=== PATIENT | male | born 1955 | race Caucasian/White ===

== ENCOUNTER 2017-01-01 15:41 | Emergency (ER) | payer OTHER ==
[~2017-01-01] VITALS: Ht 175.3 cm; Wt 92.0 kg
[2017-01-01 15:43] VITALS: BP 186/89; PULSE 88; RESP 18; TEMP 97.7; O2SAT 95
--- NOTE | 2017-01-01 16:17 | PD ---
HPI Chief Complaint: Back/ Neck Pain or Injury Time Seen by Provider: 16:17 Travel History International Travel<30 days: No Contact w/Intl Traveler<30days: No Traveled to known affect area: No History of Present Illness HPI 61 year-old male with long-standing history of low back pain and sciatica presents to emergency department for evaluation of exacerbation of this. Patient has been treated for an inguinal hernia and was given medication for abdominal cramping from [facility] earlier this week. He states that this did help his hernia but he continues to have low back pain. The pain he has had "for years." He states that it comes and goes. It radiates down to his anterior knee intermittently. Denies any new injury. No saddle paresthesia , loss of bowel or bladder, or lower extremity weakness. He has no other symptoms to report at this time. [facility] Past Medical History Medical History: Denies Significant Hx Social History Alcohol Use: No Tobacco Use: No Substance Use: No Allergies-Medications (Allergen,Severity, Reaction): Coded Allergies: No Known Allergies (Unverified , 01/01/17) Reported Meds & Prescriptions Reported Meds & Active Scripts Active Medrol Dosepak (Methylprednisolone) 4 Mg Dspk 4 Mg PO DIRECTED Per Pharmacist direction Review of Systems Except as stated in HPI: all other systems reviewed are Neg Physical Exam Narrative GENERAL: Well-nourished male patient, in no acute distress SKIN: Focused skin assessment warm/dry. HEAD: Atraumatic. Normocephalic. EYES: Pupils equal and round. No scleral icterus. No injection or drainage. ENT: No nasal bleeding or discharge. Mucous membranes pink and moist. NECK: Trachea midline. No JVD. CARDIOVASCULAR: Regular rate and rhythm. No murmur appreciated. RESPIRATORY: No accessory muscle use. Clear to auscultation. Breath sounds equal bilaterally. GASTROINTESTINAL: Abdomen soft, non-tender, nondistended. Right inguinal hernia Hepatic and splenic margins not palpable. MUSCULOSKELETAL: No obvious deformities. No clubbing. No cyanosis. No edema. Associated palpation the right sacroiliac joint. Positive straight leg right lower extremity. Distal pulses are palpable. Cap refill within normal limits. No hyperreflexia bilateral lower extremity. NEUROLOGICAL: Awake and alert. No obvious cranial nerve deficits. Motor grossly within normal limits. Normal speech. PSYCHIATRIC: Appropriate mood and affect; insight and judgment normal. Data Data Last Documented VS Vital Signs Date Time Temp Pulse Resp B/P Pulse Ox O2 Delivery O2 Flow Rate FiO2 01/01/17 15:43 97.7 88 18 186/89 95 Orders Ketorolac Inj (Toradol Inj) (01/01/17 16:30) Orphenadrine Inj (Norflex Inj) (01/01/17 16:30) Splint Or Brace Apply/Monitor (01/01/17 16:26) Brace Quick Draw Corset (01/01/17 ) MDM Medical Decision Making Medical Screen Exam Complete: Yes Emergency Medical Condition: Yes Medical Record Reviewed: Yes Differential Diagnosis Low back strain versus discogenic pain versus radiculopathy versus sciatica Narrative Course 61-year-old male presents to the emergency department for evaluation of low back pain on the right side that radiates to his right knee. This is not acute for the patient. He has no focal deficits or weaknesses on exam. He is treated for pain and provided a quick draw back brace. He is counseled on care. Financial counselor is quested to discuss patient assistance with him he feels like he cannot get in to see anybody because he does not have insurance. After their discussion, patient will be discharged home. He agrees to return immediately with any acute worsening of symptoms. Diagnosis Primary Impression: Low back pain Qualified Code: M54.41 - Chronic right-sided low back pain with right-sided sciatica Referrals: Primary Care Physician Patient Instructions: General Instructions, Sciatica (ED) Additional Instructions: Follow-up with a primary care provider Brace for support ambulatory. Do not wear at all times as a full week in your core muscles and possibly worsening your back pain Return immediately with any acute worsening of symptoms Med/Other Pt SpecificInfo: Prescription(s) given Scripts Methylprednisolone Dosepak (Medrol Dosepak)4 Mg Dspk4 Mg PO DIRECTED #1 DSPK Ref 0 Per Pharmacist direction Prov:Tori Victor 01/01/17 Disposition: 01 DISCHARGE HOME Condition: Stable Tori Victor Jan 01, 2017 16:17
[2017-01-01] MEDS ORDERED: KETOROLAC TROMETHAMINE 60 MG/2 ML (IM) VIAL IM ONE (16:30)
[2017-01-01] MEDS ORDERED: ORPHENADRINE INJ 60 MG/2 ML AMP IM ONE (16:30)
[2017-01-01] MEDS ORDERED: MEDR4PAK PO (16:49)
== END 2017-01-01 17:02 | disposition home or self-care (01) ==
LOC: NEPD 15:41
DX: M54.31 Sciatica, right side (principal); K40.90 Unilateral inguinal hernia, without obstruction or gangrene, not specified as recurrent
CPT/HCPCS: 96372; 99283; J1885; J2360; L0627

== ENCOUNTER 2017-01-05 11:55 | Emergency (ER) | payer OTHER ==
[~2017-01-05] VITALS: Ht 175.3 cm; Wt 91.0 kg
[~2017-01-05 11:55] MED LIST: MEDR4PAK PO
[2017-01-05 11:57] VITALS: BP 183/97; PULSE 97; RESP 18; TEMP 98.3; O2SAT 97
--- NOTE | 2017-01-05 12:11 | PD ---
Physical Exam Date Seen by Provider: Jan 05, 2017 Time Seen by Provider: 12:07 Narrative 61 y/o male presents with ongoing 10/10 back pain that has been ongoing for the past couple of weeks. Patient was seen 4 days ago and placed on Prednisone. Patient is signing up for pain management, but is here with ongoing intractable pain. Pain localized to Right side. Denies weakness or numbness. V/S Stable. Patient awaiting med bed placement. Data Data Last Documented VS Vital Signs Date Time Temp Pulse Resp B/P Pulse Ox O2 Delivery O2 Flow Rate FiO2 01/05/17 11:57 98.3 97 18 183/97 97 MDM Medical Record Reviewed: Yes Supervised Visit with GEOFFREY: Yes Condition: Stable Yoseph Tyler Jan 05, 2017 12:11
--- NOTE | 2017-01-05 12:38 | PD ---
HPI . acute on chronic back pain Chief Complaint: Back/ Neck Pain or Injury Time Seen by Provider: 12:38 Travel History International Travel<30 days: No Contact w/Intl Traveler<30days: No Traveled to known affect area: No History of Present Illness HPI 61-year-old male with history of chronic back pain here with complaints of persistent back pain for several weeks. Patient was recently seen in the emergency department on January 01, 2017 and was given steroids. He tells me that it is somewhat helping, but he is still having significant back pain and decided to come to the emergency department for further evaluation. He is complaining of right sided back pain that shoots into his legs. He says that the pain is 10/10 when it's at its peak. Currently he is having some relief, but tells me he can get worse. He denies any bowel or bladder dysfunction. He denies any saddle anesthesia. He denies any recent injury or trauma to the area. He is accompanied by a friend, who will be driving him home. PFSH Past Medical History Diminished Hearing: No Social History Alcohol Use: No Tobacco Use: No Substance Use: No Allergies-Medications (Allergen,Severity, Reaction): Coded Allergies: No Known Allergies (Unverified , 01/01/17) Reported Meds & Prescriptions Reported Meds & Active Scripts Active Ibuprofen 800 Mg Tab 800 Mg PO TID Flexeril (Cyclobenzaprine HCl) 5 Mg Tab 5 Mg PO TID Medrol Dosepak (Methylprednisolone) 4 Mg Dspk 4 Mg PO DIRECTED Per Pharmacist direction Review of Systems General / Constitutional: No: Fever Eyes: No: Visual changes HENT: No: Headaches Cardiovascular: No: Chest Pain or Discomfort Respiratory: No: Shortness of Breath Gastrointestinal: No: Abdominal Pain Genitourinary: No: Dysuria Musculoskeletal: Positive: Pain (back pain/right leg) Skin: No Rash Neurologic: No: Weakness Psychiatric: No: Depression Endocrine: No: Polydipsia Hematologic/Lymphatic: No: Easy Bruising Physical Exam Narrative GENERAL: AAO x 3, no acute distress, Well-nourished, well-developed patient. SKIN: Warm and dry. No visible rashes or bruising. HEAD: Normocephalic and atraumatic. EYES: No scleral icterus. No injection or drainage. ENT: No nasal drainage noted. airway patent. NECK: Supple, trachea midline. No JVD. CARDIOVASCULAR: Regular rate and rhythm without murmurs, gallops, or rubs. RESPIRATORY: Breath sounds equal bilaterally. No accessory muscle use. No rhonchi or rales. GASTROINTESTINAL: Visual inspection normal EXTREMITIES: No cyanosis or edema. Ambulatory. Bilateral legs normal range of motion. Straight leg raise negative bilaterally. Tenderness over the right gluteus. BACK: Nontender without obvious deformity. No CVA tenderness. PSYCH: AAO x 3, normal affect. Data Data Last Documented VS Vital Signs Date Time Temp Pulse Resp B/P Pulse Ox O2 Delivery O2 Flow Rate FiO2 01/05/17 12:58 16 01/05/17 11:57 98.3 97 183/97 97 Orders Ketorolac Inj (Toradol Inj) (01/05/17 12:45) Orphenadrine Inj (Norflex Inj) (01/05/17 12:45) [facility] Medical Decision Making Medical Screen Exam Complete: Yes Emergency Medical Condition: Yes Medical Record Reviewed: Yes Differential Diagnosis Acute on chronic back pain, sciatica, less likely fracture disc Narrative Course 61-year-old male with history of chronic back pain here with complaints of persistent back pain for several weeks. Patient was recently seen in the emergency department on January 01, 2017 and was given steroids. He tells me that it is somewhat helping, but he is still having significant back pain and decided to come to the emergency department for further evaluation. He is complaining of right sided back pain that shoots into his legs. He says that the pain is 10/10 when it's at its peak. Currently he is having some relief, but tells me he can get worse. He denies any bowel or bladder dysfunction. He denies any saddle anesthesia. He denies any recent injury or trauma to the area. He is accompanied by a friend, who will be driving him home. Patient seen and examined. He appears to have chronic back pain with some sciatica. I will provide him with a shot of Norflex and Toradol here in the emergency department I will discharge him home with a course of muscle relaxers and ibuprofen. I've explained to him that ultimately he will need to establish with a primary care provider for further workup and treatment. Patient is in the process of filling out some documents to receive assistance towards finding the correct providers. Patient verbalized understanding of instructions, questions were answered, and thanked me for their care. I advised them if their condition worsens, please return to the nearest emergency room for further care. Diagnosis Primary Impression: Low back pain Qualified Code: M54.41 - Chronic right-sided low back pain with right-sided sciatica Patient Instructions: Back Pain (ED), General Instructions Additional Instructions: Please return to emergency department if your symptoms return or worsen. Follow up with your primary care provider. Take medications as prescribed. Med/Other Pt SpecificInfo: Prescription(s) given Scripts Ibuprofen 800 Mg [id number] Mg PO TID #21 TAB Prov:Royer Mock MD 01/05/17 Cyclobenzaprine (Flexeril)5 Mg Tab5 Mg PO TID #21 TAB Prov:Royer Mock MD 01/05/17 Disposition: 01 DISCHARGE HOME Condition: Stable Carina Avina Jan 05, 2017 12:38
[2017-01-05] MEDS ORDERED: IBUP800T23 PO (12:43)
[2017-01-05] MEDS ORDERED: CYCL5TAB PO (12:43)
[2017-01-05] MEDS ORDERED: KETOROLAC TROMETHAMINE 60 MG/2 ML (IM) VIAL IM ONE (12:45)
[2017-01-05] MEDS ORDERED: ORPHENADRINE INJ 60 MG/2 ML AMP IM ONE (12:45)
== END 2017-01-05 13:19 | disposition home or self-care (01) ==
LOC: NEPK 11:55
DX: M54.41 Lumbago with sciatica, right side (principal)
CPT/HCPCS: 96372; 99283; J1885; J2360